=== PATIENT | male | born 1945 | race Caucasian/White ===

== ENCOUNTER → 2017-10-01 | Outpatient (CLI) | payer OTHER | LOC: FIMAGING 09:13 | PROVIDERS: ATTEND Family Medicine | DX: I70.212 Atherosclerosis of native arteries of extremities with intermittent claudication, left leg (principal); E78.5 Hyperlipidemia, unspecified; M79.605 Pain in left leg; I71.4 Abdominal aortic aneurysm, without rupture ==

== ENCOUNTER → 2018-01-05 | Outpatient (CLI) | payer OTHER ==
[~2018-01-05] MED LIST: IOPAMIDOL (ISOVUE-370) 150 ML BTL IV ONE
== END ==
LOC: CIMAGING 09:11
PROVIDERS: ATTEND Surgery
DX: I70.212 Atherosclerosis of native arteries of extremities with intermittent claudication, left leg (principal)
CPT/HCPCS: 75635; Q9967

== ENCOUNTER 2018-08-23 12:26 | Inpatient (IN) | payer OTHER ==
[2018-08-23] MEDS ORDERED: LIDOCAINE 1% 2 ML INJ ID PRN (12:58)
[2018-08-23] MEDS ORDERED: LR 1,000 ML IV ONE (12:58)
[2018-08-23] MEDS ORDERED: ceFAZolin 2 GM/DEXTROSE 100 ML IV ONE (13:24)
--- NOTE | 2018-08-23 13:24 | PDHPUP ---
History & Physical Update H&P update statement: This history and physical update is based on an assessment of the patient which was completed after admission or registration (within 24 hours), but prior to the surgery/procedure. H&P update: H&P reviewed & patient examined, no change in patient's condition since H&P completed
[2018-08-23] MEDS ORDERED: BUPIVACAINE 0.5% 30 ML SDV ONE (13:40)
[2018-08-23] MEDS ORDERED: PAPAVERINE HCL 60 MG/2 ML SDV ONE (13:41)
[2018-08-23] MEDS ORDERED: MIDAZOLAM 2 MG/2 ML VIAL ONE (14:04)
[2018-08-23] MEDS ORDERED: MIDAZOLAM 2 MG/2 ML VIAL IVP ONE (14:05)
--- NOTE | 2018-08-23 14:05 | PDANEPAE ---
ANE Past Medical History - Cardiovascular History Hx Hypertension: Yes Hx Arrhythmias: No Hx Chest Pain: No Hx Coronary Artery / Peripheral Vascular Disease: Yes Hx CHF / Valvular Disease: No Hx Palpitations: No Cardiovascular History Comment: htn. NSTEMI 03/2014. cad with stents x2. pvd. AAA. hyperlipidemia. [facility] by [facility] currently was at [facility] - Pulmonary History Hx COPD: No Hx Asthma/Reactive Airway Disease: No Hx Recent Upper Respiratory Infection: No Hx Oxygen in Use at Home: No Hx Sleep Apnea: No Sleep Apnea Screening Result - Last Documented: Positive Pulmonary History Comment: florinda triggers - Neurologic History Hx Cerebrovascular Accident: No Hx Seizures: No Hx Dementia: No - Endocrine History Hx Diabetes: No - Renal History Hx Renal Disorders: No - Liver History Hx Hepatic Disorders: No - Neurological & Psychiatric Hx Hx Neurological and Psychiatric Disorders: No - Cancer History Hx Cancer: No - Congenital Disorder History Hx Congenital Disorders: No - GI History Hx Gastrointestinal Disorders: No - Other Health History Other Health History: wears glasses - Chronic Pain History Chronic Pain: No - Surgical History Prior Surgeries: L broken arm repair 2009 from [facility]. cardiac stents x2 2013 ANE Review of Systems Review of Systems: - Exercise capacity METS (RN): 4 METS ANE Patient History - Allergies Allergies/Adverse Reactions: No Known Allergies Allergy (Verified 07/05/18 10:52) - Home Medications Home Medications: Aspirin [Aspirin 81mg (*)] 81 mg PO HS 07/05/18 [Last Taken 08/22/18] Atorvastatin Calcium [Lipitor 40 mg (*)] 40 mg PO HS 07/05/18 [Last Taken ] Hydrochlorothiazide [HCTZ (*)] 25 mg PO HS 07/05/18 [Last Taken 08/22/18] Lisinopril [Zestril 40 mg (*)] 40 mg PO HS 07/05/18 [Last Taken 08/22/18] Nebivolol HCl [Bystolic 5 mg (*)] 5 mg PO HS 07/05/18 [Last Taken 08/22/18] Howard-3 Fatty Acids [Fish Oil 1000 mg (*)] 1,000 mg PO HS 07/05/18 [Last Taken 1 Week Ago ~08/16/18] - NPO status NPO Since - Liquids (Date): 08/23/18 NPO Since - Liquids (Time): 11:00 NPO Since - Solids (Date): 08/22/18 NPO Since - Solids (Time): 17:30 - Smoking Hx Smoking Status: Smoker current status UNK - Family Anes Hx Family Hx Anesthesia Complications: none ANE Labs/Vital Signs - Vital Signs Blood Pressure: 108/70 Heart Rate: 48 Respiratory Rate: 16 O2 Sat (%): 95 Height: 172.72 cm Weight: 102.058 kg ANE Physical Exam - Airway Neck exam: FROM Mallampati Score: Class 3 Mouth exam: normal dental/mouth exam - Pulmonary Pulmonary: no respiratory distress - Cardiovascular Cardiovascular: regular rate and rhythym - ASA Status ASA Status: III ANE Anesthesia Plan Anesthesia Plan: general endotracheal anesthesia (spinal narcotic PSR)
[2018-08-23] MEDS ORDERED: fentaNYL 250 MCG/5 ML INJ ONE (14:09)
[2018-08-23] MEDS ORDERED: morphINE PF 5 MG/10 ML INJ ONE (14:09)
[2018-08-23] MEDS ORDERED: PROPOFOL 200 MG/20 ML VIAL ONE (14:09)
[2018-08-23] MEDS ORDERED: METOCLOPRAMIDE 10 MG/2 ML VIAL ONE (14:10)
[2018-08-23] MEDS ORDERED: LIDOCAINE 2% 100 MG/5 ML SYR ONE (14:10)
[2018-08-23] MEDS ORDERED: DEXAMETHASONE 4 MG/ML VIAL ONE (14:10)
[2018-08-23] MEDS ORDERED: ROCURONIUM 100 MG/10 ML VIAL ONE (14:10)
[2018-08-23] MEDS ORDERED: IOPAMIDOL (ISOVUE-M 200) 20 ML VIAL ONE ×2 (14:32→15:39)
[2018-08-23] MEDS ORDERED: ONDANSETRON 4 MG/2 ML VIAL IVP PRN ×3 (14:54→16:46)
[2018-08-23] MEDS ORDERED: METOCLOPRAMIDE 10 MG/2 ML VIAL IVP PRN (14:54)
[2018-08-23] MEDS ORDERED: ZOLPIDEM TARTRATE 5 MG TAB PO PRN (14:54)
[2018-08-23] MEDS ORDERED: IOPAMIDOL (ISOVUE-M 300) 15 ML VIAL ONE ×2 (15:41→18:24)
[2018-08-23] MEDS ORDERED: NALOXONE HCL 0.4 MG/ML INJ IVP PRN ×2 (16:46)
[2018-08-23] MEDS ORDERED: ALBUTEROL 3 ML DEYVIAL IH PRN (16:46)
[2018-08-23] MEDS ORDERED: fentaNYL 100 MCG/2 ML INJ IVP PRN (16:46)
[2018-08-23] MEDS ORDERED: SURGIFLO MATRIX KIT WITH THROMBIN 8 ML TP ONE (18:15)
[2018-08-23] MEDS ORDERED: HEPARIN 10,000 UNIT/10 ML MDV (1,000 UNIT/ML) ONE (18:41)
--- NOTE | 2018-08-23 18:55 | POSTOPPROG ---
Post Op Note Date of Operation: 08/23/18 Surgeon: Corby Giron [employer] Art Supervisor: Luis Santos Anesthesiologist: José Cornell Anesthesia: GET(General Endotracheal), Spinal Pre-op Diagnosis: Left SFA/popliteal artery aneurysm Post-op Diagnosis: Same Procedure: Left femoral to popliteal artery bypass with rev SVG / aneurysm ligation Findings: Fusiform aneurysm, poor run off vessels Inf/Abcess present in the surg proc area at time of surgery?: No EBL: Minimal Complications: no immediate Specimen(s): none
[2018-08-23] MEDS ORDERED: HEPARIN/DEXTROSE 500 ML IV SCH ×2 (19:00→19:30)
[2018-08-23] MEDS ORDERED: HEPARIN 10,000 UNIT/10 ML MDV (1,000 UNIT/ML) IVP PRN (19:18)
--- NOTE | 2018-08-23 19:22 | POSTANESTH ---
Post Anesthetic Evaluation Cardiovascular Status: Similar to Pre-Op Cond Respiratory Status: Similar to Pre-op Cond. Level of Consciousness/Mental Status: Alert and Oriented Pain Control: Adequate, Prn Tx Ordered Nausea/Vomiting Control: Adequate, Prn Tx Ordered Complications Possibly Related to Anesthesia: None Noted
[2018-08-23 20:02] LABS: PLATELET COUNT 117 10^3/uL (150-400)
[2018-08-23 20:39] LABS: INR 1.38 (0.83-1.16)
--- NOTE | 2018-08-23 21:36 | PDMN ---
Medical Necessity Medical necessity: Pt meets inpt criteria per MD order and Cardiovascular surgery or Procedure [facility], [place] of femoropopliteal vein, 1 segment, for vascular reconstruction procedure. 72 y/o w/L SFA/popliteal artery aneurism admitted for L femoral to popliteal artery bypass w/rev SVG/ aneurism ligation and post-op care. Est LOS>2MN.
[2018-08-23 21:46] LABS: PROTIME(PATIENT) 17.1 SEC (12.0-15.0)
[2018-08-23] MEDS: ASPIRIN 81 MG CHEWABLE TAB PO SCH (23:07)
[2018-08-23] MEDS: HYDROCHLOROTHIAZIDE 25 MG TAB PO SCH (23:07)
[2018-08-23] MEDS: LISINOPRIL 40 MG TAB PO SCH (23:07)
[2018-08-23] MEDS: ATORVASTATIN CALCIUM 40 MG TAB PO SCH (23:07)
[2018-08-23] MEDS: NEBIVOLOL HCL 5 MG TAB PO SCH (23:13)
[2018-08-24 03:58] LABS: PROTIME(PATIENT) 16.4 SEC (12.0-15.0)
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
--- NOTE | 2018-08-24 10:15 | SOAPPROG ---
SOELAINA Progress Note Assessment/Plan: Assessment/Plan: S/p left popliteal artery aneurysm bypass with reverse saphenous vein graft POD #1. Doing well. Graft patent. Heparin switched to Eliquis. Discussed probable anticoagulation therapy upon discharge. Encouraged walking and leg exercises. Request for PT to evaluate and treat. Extensive patient questions addressed. Patient seen and evaluated with Dr. Giron. 08/24/18 16:31 Subjective: No overnight concerns. Left leg "tightness" and pain with bending and walking. Left leg swelling most prominent in calf. Complains of mild left dorsal foot numbness. Has has mild nausea and emesis x2 today- this is relieved with Zofran. Complains of possible gastric reflux. No urinary complaints. Objective: Vital Signs Temp Pulse Resp BP Pulse Ox 36.7 C 61 22 H 83/57 L 95 08/24/18 08:48 08/24/18 08:48 08/24/18 08:48 08/24/18 08:48 08/24/18 08:48 Laboratory Results 08/23/18 19:40 08/23/18 08/24/18 08/25/18 05:59 05:59 05:59 Intake Total 4250 Output Total 1375 Balance 2875 PT 16.4 SEC (12.0-15.0) H 08/24/18 03:39 INR 1.30 (0.83-1.16) H 08/24/18 03:39 Physical Exam: Gen: A&O x3, appears comfortable in bed, afebrile HEENT: normal Heart: RRR Lungs: CTA bilateral Abdomen: soft, nondistended, nontender Extremities: Left leg incisions clean without erythema. Appropriate left thigh, groin, and leg ecchymosis and swelling. Mild pain left medial thigh. Right leg unremarkable. Neuro: nonfocal bilateral legs ICD10 Worksheet Patient Problems: Problems Problem Status Onset Popliteal artery aneurysm Acute
[2018-08-24] MEDS: APIXABAN 5 MG TAB PO SCH ×2 (10:52→22:44)
[2018-08-24] MEDS: HYDROmorphONE/DILAUDID 1 MG/ML INJ IVP PRN (15:13)
--- NOTE | 2018-08-24 15:43 | ASMTCMCOM ---
CM Note CM Note Notes: Spoke with pt's RN. Pt in too much pain to converse with CM. Pt lives with in [place] and was admitted for Fem-Pop Bypass, and is experiencing considerable swelling post op. PT has been ordered but has yet to evaluated. D/C needs TBD. CM to follow. D/C Plan: TBD Date Signed: 08/24/2018 03:43 PM Electronically Signed By:Rehana Barth
[2018-08-24] MEDS: HYDROCODONE/APAP 5/325 TAB PO PRN ×2 (15:47→22:49)
--- NOTE | 2018-08-24 17:19 | PDPAINCON ---
Pain Management Consultation - Subjective Pain at rest (/10): 3 Pain with activity (/10): 5 Pain is: high, but manageable Side effects include: drowsy, itchiness, nausea Activity: able to ambulate - Objective Technique: spinal opioid Continuous infusion: morphine Catheter site: clean, dry, intact, no erythema/edema/exudate Sensory and motor exam: block has resolved, no apparent ill effects Vital signs: stable - Assessment/Plan Assessment/Plan: pain well-controlled, continue current mgmt (would continue PO pain medication, consider increasing current dose.) Additional comments: Intrathecal narcotic resolved, no ill effects noted.
[2018-08-24] MEDS ORDERED: ONDANSETRON 4 MG/2 ML VIAL IVP PRN (17:37)
[2018-08-24] MEDS ORDERED: PROMETHAZINE HCL 25 MG/ML INJ IVP PRN (17:37)
[2018-08-24] MEDS: CALCIUM CARBONATE 500 MG CHEWABLE TAB PO PRN ×2 (18:35→22:40)
[2018-08-24] MEDS ORDERED: D5W LR 1,000 ML IV SCH (19:30)
[2018-08-24] MEDS ORDERED: NS BOLUS 1000 ML (Wide open) IV ONE (19:30)
[2018-08-24] MEDS: ASPIRIN 81 MG CHEWABLE TAB PO SCH (22:40)
[2018-08-24] MEDS: NEBIVOLOL HCL 5 MG TAB PO SCH (22:40)
[2018-08-24] MEDS: ATORVASTATIN CALCIUM 40 MG TAB PO SCH (22:44)
[2018-08-24] MEDS: HYDROCHLOROTHIAZIDE 25 MG TAB PO SCH (22:44)
[2018-08-24] MEDS: LISINOPRIL 40 MG TAB PO SCH (22:44)
[2018-08-25] MEDS: oxyCODONE IR 15 MG TAB PO PRN ×5 (00:16→21:22)
[2018-08-25] MEDS: DIAZEPAM 5 MG TAB PO PRN ×2 (08:21→10:07)
[2018-08-25] MEDS: ACETAMINOPHEN 325 MG TAB PO PRN (08:21)
[2018-08-25] MEDS: APIXABAN 5 MG TAB PO SCH ×2 (09:57→21:24)
--- NOTE | 2018-08-25 10:46 | SOAPPROG ---
SOAP Progress Note Assessment/Plan: Assessment:no overnight issues. nausea better. still with significant pain. no cp or sob. avss. comfortable, up in chair. left leg with notable diffuse swelling/ecchymosis. incisions clean. strong PT signal. foot warm. Cr 1.6. pod#2 s/p fem-pop / aneurysm ligation. slow progress. graft patent. elevated creat likely pre-renal - will give additional IVF today. aggressive PT. cont eliquis (extremely poor outflow). supportive care. Plan: 08/25/18 10:44 Objective: Vital Signs Temp Pulse Resp BP Pulse Ox 36.4 C 63 15 97/46 L 90 L 08/25/18 07:19 08/25/18 07:19 08/25/18 07:19 08/25/18 09:59 08/25/18 07:19 Laboratory Results 08/23/18 19:40 08/25/18 03:50 08/24/18 08/25/18 08/26/18 05:59 05:59 05:59 Intake Total 4566 2790 Output Total 1375 855 Balance 3191 1935 PT 16.4 SEC (12.0-15.0) H 08/24/18 03:39 INR 1.30 (0.83-1.16) H 08/24/18 03:39 ICD10 Worksheet Patient Problems: Problems Problem Status Onset Popliteal artery aneurysm Acute
[2018-08-25] MEDS: NS 1,000 ML IV SCH ×2 (12:41→15:30)
--- NOTE | 2018-08-25 14:11 | ASMTCMCOM ---
CM Note CM Note Notes: 08/25/2018 Case Management Note PT recommending SNF rehab. Met w/pt to discuss. Pt states that MD is recommending home care. Discussed both options with patient. Pt states he will discharge with the recommendations from surgeon and will make decision on day of discharge. Faxed referral to [facility]. Imelda visited onsite and accepted. Faxed referral to [facility]. Phone call to [facility], they accepted pt. Case Management d/c poc: [facility] vs [facility] Case Management to follow. Date Signed: 08/25/2018 02:10 PM Electronically Signed By:Siria Ellis RN
[2018-08-25] MEDS ORDERED: BISACODYL 10 MG SUPP PR PRN (14:35)
[2018-08-25] MEDS ORDERED: MAGNESIUM HYDROXIDE 30 ML UDCUP PO PRN (14:35)
[2018-08-25] MEDS ORDERED: POLYETHYLENE GLYCOL 3350 17 GM PKT PO PRN (14:35)
[2018-08-25] MEDS ORDERED: LACTULOSE 20 GM/30 ML UDCUP PO PRN (14:35)
[2018-08-25] MEDS: NEBIVOLOL HCL 5 MG TAB PO SCH (21:23)
[2018-08-25] MEDS: LISINOPRIL 40 MG TAB PO SCH (21:23)
[2018-08-25] MEDS: ASPIRIN 81 MG CHEWABLE TAB PO SCH (21:24)
[2018-08-25] MEDS: ATORVASTATIN CALCIUM 40 MG TAB PO SCH (21:24)
[2018-08-25] MEDS: SENNOSIDES/DOCUSATE SODIUM TAB PO SCH (21:24)
[2018-08-26] MEDS: HYDROCHLOROTHIAZIDE 25 MG TAB PO SCH (00:03)
[2018-08-26] MEDS: HYDROCODONE/APAP 5/325 TAB PO PRN ×3 (03:34→22:03)
[2018-08-26] MEDS: APIXABAN 5 MG TAB PO SCH ×2 (07:50→21:38)
[2018-08-26] MEDS: SENNOSIDES/DOCUSATE SODIUM TAB PO SCH ×2 (07:51→21:37)
--- NOTE | 2018-08-26 08:57 | SOAPPROG ---
SOAP Progress Note Assessment/Plan: Assessment:slow progress. walking slightly better. pain control improved. appetite poor. still max assist with staff. afebrile. bp 90's. comfortable. leg swelling unchanged. diffuse ecchymosis evolving. incisions clean. skin blistering. strong PT signal. Na 127. Cr 1.5. pod#3 s/p fem pop / aneurysm ligation. slow improvement. will need inpt rehab per discussion with PT. continued supportive care re: TYRON/hyponatremia - restart IVF given poor po intake. cont eliquis. cont PT/OT. dc once labs improved. BECKY for leg compression/swelling management. no overnight issues. nausea better. still with significant pain. no cp or sob. avss. comfortable, up in chair. left leg with notable diffuse swelling/ ecchymosis. incisions clean. strong PT signal. foot warm. Cr 1.6. pod#2 s/ p fem-pop / aneurysm ligation. slow progress. graft patent. elevated creat likely pre-renal - will give additional IVF today. aggressive PT. cont eliquis (extremely poor outflow). supportive care. Plan: 08/25/18 10:44 08/26/18 08:54 Objective: Vital Signs Temp Pulse Resp BP Pulse Ox 36.9 C 60 18 93/47 L 93 08/26/18 08:01 08/26/18 08:01 08/26/18 08:01 08/26/18 08:01 08/26/18 08:01 Laboratory Results 08/23/18 19:40 08/26/18 07:40 08/25/18 08/26/18 08/27/18 05:59 05:59 05:59 Intake Total 2790 1305 Output Total 855 1150 500 Balance 1935 155 -500 PT 16.4 SEC (12.0-15.0) H 08/24/18 03:39 INR 1.30 (0.83-1.16) H 08/24/18 03:39 ICD10 Worksheet Patient Problems: Problems Problem Status Onset Popliteal artery aneurysm Acute
[2018-08-26] MEDS: NS 1,000 ML IV SCH (09:45)
[2018-08-26] MEDS: oxyCODONE IR 15 MG TAB PO PRN ×2 (09:45→13:05)
[2018-08-26] MEDS: HYDROmorphONE/DILAUDID 1 MG/ML INJ IVP PRN (10:33)
[2018-08-26] MEDS: DIAZEPAM 5 MG TAB PO PRN ×2 (10:34→13:05)
[2018-08-26] MEDS ORDERED: METHOCARBAMOL 500 MG TAB PO PRN (13:51)
--- NOTE | 2018-08-26 15:04 | ASMTCMCOM ---
CM Note CM Note Notes: 08/26/2018 [facility] Management Note Phone call from Imelda with [facility]. Pt has been accepted. Requested auth. Case Management d/c poc: [facility] SNF rehab Case Management to follow. Date Signed: 08/26/2018 03:03 PM Electronically Signed By:Siria Ellis RN
[2018-08-26] MEDS: ASPIRIN 81 MG CHEWABLE TAB PO SCH (21:37)
[2018-08-26] MEDS: ATORVASTATIN CALCIUM 40 MG TAB PO SCH (21:38)
[2018-08-26] MEDS: NEBIVOLOL HCL 5 MG TAB PO SCH (21:38)
[2018-08-27] MEDS: SENNOSIDES/DOCUSATE SODIUM TAB PO SCH ×2 (07:24→20:24)
[2018-08-27] MEDS: APIXABAN 5 MG TAB PO SCH ×2 (07:55→20:22)
[2018-08-27] MEDS: HYDROCODONE/APAP 5/325 TAB PO PRN ×2 (07:55→22:02)
--- NOTE | 2018-08-27 09:54 | SOAPPROG ---
SOAP Progress Note Assessment/Plan: Assessment/Plan: 72-year-old gentleman postop day 4. Status post ligation of distal left femoral artery aneurysm and bypass from superficial femoral artery to popliteal. The patient has had quite a bit of pain postoperatively nausea which was an issue has resolved. Hyponatremia of 127 yesterday is now 130 after appropriate administration of normal saline. The patient still has pain in his left distal thigh and ankle. He has moderate swelling which has been treated with elevation and compression. Incisions have minimal to moderate serosanguineous drainage. Doppler signals remained intact. Multiple bowel movements last night. Confusion with Robaxin yesterday this will be discontinued. Not a true allergy but hypersensitivity Alert oriented to person place and time Regular rate and rhythm Clear to auscultation Abdomen protuberant Incisions with dry dressing currently. Dagoberto wrap over majority of his distal thigh and lower leg. Foot is mildly edematous. Biphasic Doppler signal at the ankle. Doing better today. 1000 cc free water restriction Continue normal saline for hypernatremia Breakthrough IV Dilaudid for pain control Discontinue Robaxin Anticipate discharge to SNF on Wednesday or Wednesday08/27/18 09:50 Objective: Vital Signs Temp Pulse Resp BP Pulse Ox 36.7 C 66 18 87/46 L 98 08/27/18 07:27 08/27/18 07:27 08/27/18 07:27 08/27/18 07:27 08/27/18 07:27 Laboratory Results 08/23/18 19:40 08/27/18 04:08 08/26/18 08/27/18 08/28/18 05:59 05:59 05:59 Intake Total 1305 4483 200 Output Total 1150 1700 300 Balance 155 2783 -100 PT 16.4 SEC (12.0-15.0) H 08/24/18 03:39 INR 1.30 (0.83-1.16) H 08/24/18 03:39 ICD10 Worksheet Patient Problems: Problems Problem Status Onset Popliteal artery aneurysm Acute
[2018-08-27] MEDS: NEBIVOLOL HCL 5 MG TAB PO SCH (20:21)
[2018-08-27] MEDS: ASPIRIN 81 MG CHEWABLE TAB PO SCH (20:22)
[2018-08-27] MEDS: ATORVASTATIN CALCIUM 40 MG TAB PO SCH (20:22)
[2018-08-27] MEDS: NS 1,000 ML IV SCH (20:24)
[2018-08-28] MEDS: APIXABAN 5 MG TAB PO SCH ×2 (08:21→21:34)
[2018-08-28] MEDS: SENNOSIDES/DOCUSATE SODIUM TAB PO SCH ×2 (08:22→22:11)
--- NOTE | 2018-08-28 08:27 | SOAPPROG ---
SOAP Progress Note Assessment/Plan: Assessment/Plan: 72-year-old gentleman postop day 5. Status post ligation of distal left femoral artery aneurysm and bypass from superficial femoral artery to popliteal. The patient has had quite a bit of pain postoperatively nausea which was an issue has resolved. The patient still has pain in his left distal thigh and ankle. He has moderate swelling which has been treated with elevation and compression. Incisions have minimal serosanguineous drainage. Doppler signals remained intact. States he is better when he walks Confusion with Robaxin yesterday this was discontinued. Not a true allergy but hypersensitivity Alert oriented to person place and time Regular rate and rhythm Clear to auscultation Abdomen protuberant Incisions with dry dressing currently. Dagoberto wrap over majority of his distal thigh and lower leg. Foot is mildly edematous. Biphasic Doppler signal at the ankle. Doing better today. 1000 cc free water restriction Continue normal saline for hypernatremia recheck Chem 7 today and tomorrow Breakthrough IV Dilaudid for pain control Encourage ambulation. Compression only during the day Anticipate discharge to SNF on Wednesday or Wednesday08/27/18 09:50 08/28/18 08:25 Objective: Vital Signs Temp Pulse Resp BP Pulse Ox 36.8 C 60 18 108/52 L 91 L 08/28/18 07:52 08/28/18 07:52 08/28/18 07:52 08/28/18 07:52 08/28/18 07:52 Laboratory Results 08/23/18 19:40 08/27/18 04:08 08/27/18 08/28/18 08/29/18 05:59 05:59 05:59 Intake Total 4483 3436 Output Total 1700 2800 700 Balance 2783 636 -700 PT 16.4 SEC (12.0-15.0) H 08/24/18 03:39 INR 1.30 (0.83-1.16) H 08/24/18 03:39 ICD10 Worksheet Patient Problems: Problems Problem Status Onset Popliteal artery aneurysm Acute
[2018-08-28] MEDS: HYDROCODONE/APAP 5/325 TAB PO PRN ×3 (10:09→22:11)
[2018-08-28] MEDS: NS 1,000 ML IV SCH (21:02)
[2018-08-28] MEDS: NEBIVOLOL HCL 5 MG TAB PO SCH (21:31)
[2018-08-28] MEDS: ASPIRIN 81 MG CHEWABLE TAB PO SCH (21:34)
[2018-08-28] MEDS: ATORVASTATIN CALCIUM 40 MG TAB PO SCH (21:34)
[2018-08-29] MEDS: APIXABAN 5 MG TAB PO SCH (07:55)
[2018-08-29] MEDS: SENNOSIDES/DOCUSATE SODIUM TAB PO SCH (07:56)
[2018-08-29 08:02] VITALS: BP 130/66
--- NOTE | 2018-08-29 09:02 | PDIAF ---
- Diagnosis Diagnosis: Left popliteal aneurysm ligation and bypass Code Status: Full Code - Medication Management Additional Medication Instructions: Hold Lisinopril and Hydrochlorothiazide until follow up. Discharge Medications: electronically signed and located in the Home Medication List. PICC Care - Routine: N/A - Orders Services needed: Registered Nurse, Certified Passenger Screener, Physical Therapy Isolation Type: None Diet Recommendation: no restrictions on diet Diet Texture: Regular Texture Diet Wound Care Instructions: Wash incisions with warm water and soap. Keep covered with dry gauze. Left leg compression with BECKY wrap during day- may remove at night. Activity/Weight Bearing Restrictions: None. Frequent ambulation. Additional Instructions: May shower. Wash incisions with warm water and soap. Cover incisions with dry gauze. Continue BECKY wrap compression on left leg during day- may remove at night. Hold Lisinopril and Hydrochlorothiazide until seen for follow up visit. No activity restrictions, continue with frequent ambulation. Regular diet. Follow up in the office in 2 weeks, call to make appointment. Prescriptions provided for Eliquis and oxycodone. - Follow Up Care Current Providers and Referrals: Corby Giron MD [Medical Doctor] - follow up in 2 weeks Lizbeth Musa DO [Primary Care Provider] -
[2018-08-29] MEDS: oxyCODONE IR 15 MG TAB PO PRN (11:59)
[2018-08-29] MEDS: ACETAMINOPHEN 325 MG TAB PO PRN (12:00)
--- NOTE | 2018-08-29 14:21 | ASDISCHSUM ---
Discharge Information Plan Status:Has needs-TBD Medically Cleared to Leave: Discharge Date:08/29/2018 12:29 PM CM D/C Disposition: ADT D/C Disposition:[facility] Facility Projected Discharge Date:08/27/2018 11:00 AM Transportation at D/C: Discharge Delay Reason: Follow-Up Date:08/27/2018 11:00 AM Discharge Slot: Final Diagnosis: Placement Information Referral Type:*Jail/SNF Referral ID:[facility]-[id number] Provider Name:Junie Langford [place] Address 1[address] [place] Phone Number: Address 2: Fax Number: [facility]:[place] Selection Factors: State:[place] Referral Type:*Home Health Care Services Referral ID:[id number] Provider Name: Address 1: Phone Number: Address 2: Fax Number: City: Selection Factors: State: Patient Contact Information Contact Name:SILVIA Relationship: Address:[address] [place] Alternate Phone: State/Zip Code:[place] [address] Email: Financial Information Financial Class:Medicare Advantage Plans Primary Plan Desc:[employer] Primary Plan Number:[id number] Secondary Plan Desc: Secondary Plan Number: Assessment Information LACE LACE Length of stay for Answers: 7-13 days current admission Acuity / Level of Answers: Yes Care: Did the patient have an inpatient admission? Comorbidities - select Answers: Coronary Artery Disease all that apply Peripheral vascular disease Other Notes: HTN; HLD # of Emergency department Answers: 0 visits in the last 6 months Score: 12 Date Signed: 08/29/2018 09:34 AM Electronically Signed By:Aviva Carson RN [facility] CM Progress Note CM Note CM Note Notes: Spoke with pt's RN. Pt in too much pain to converse with CM. Pt lives with in [place] and was admitted for Fem-Pop Bypass, and is experiencing considerable swelling post op. PT has been ordered but has yet to evaluated. D/C needs TBD. CM to follow. D/C Plan: TBD Date Signed: 08/24/2018 03:43 PM Electronically Signed By:Rehana Barth [facility] CM Progress Note CM Note CM Note Notes: 08/25/2018 Case Management Note PT recommending SNF rehab. Met w/pt to discuss. Pt states that MD is recommending home care. Discussed both options with patient. Pt states he will discharge with the recommendations from surgeon and will make decision on day of discharge. Faxed referral to [facility]. Imelda visited onsite and accepted. Faxed referral to [facility]. Phone call to [facility], they accepted pt. Case Management d/c poc: [facility] vs [facility] Case Management to follow. Date Signed: 08/25/2018 02:10 PM Electronically Signed By:Siria Ellis RN [facility] CM Progress Note CM Note CM Note Notes: 08/26/2018 [facility] Management Note Phone call from Imelda with [facility]. Pt has been accepted. Requested auth. Case Management d/c poc: [facility] rehab Case Management to follow. Date Signed: 08/26/2018 03:03 PM Electronically Signed By:Siria Ellis RN Case Management Discharge Plan Note Case Management Discharge Discharge Order Complete? Answers: Yes Patient to Obtain Answers: Other Notes: [facility] Transportation Arranged Answers: Other Notes: [facility] per Transport will Pick (Date 08/29/2018 12:00 PM & Time) Faxed Final Orders Answers: Yes Discharge Comments Notes: Patient discharged to [facility]. Transport arraged by facility. VIKCY Bennett to call report. Date Signed: 08/29/2018 09:33 AM Electronically Signed By:Aviva Carson RN Intervention Information Intervention Type:*IM-Signed Date of Service:08/29/2018 11:26 AM Patient Type:Inpatient Staff Member:Deneen Patel Hours: Discipline: Severity: Comment:
--- NOTE | 2018-08-29 14:22 | ASMTDCNOTE ---
Case Management Discharge Discharge Order Complete? Answers: Yes Patient to Obtain Answers: Other Notes: [facility] Transportation Arranged Answers: Other Notes: [facility] per [facility] Transport will Pick (Date 08/29/2018 12:00 PM & Time) Faxed Final Orders Answers: Yes Discharge Comments Notes: Patient discharged to [facility]. Transport arraged by facility. VICKY Bennett to call report. Date Signed: 08/29/2018 09:33 AM Electronically Signed By:Aviva Carson RN
--- NOTE | 2018-08-29 21:33 | GDS ---
REASON FOR ADMISSION: Popliteal artery aneurysm. 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 He sustained embolization multiple years ago. He has been in an ongoing claudicator. He has successfully stopped smoking and has improved his ambulatory efforts. He was admitted for ane urysm ligation with a femoral to distal popliteal artery bypass with reverse saphenous vein. His pos toperative course was notable for ongoing pain as well as a self-resolving acute renal insufficiency and hyponatremia. The latter 2 events have all improved with conservative measures, including free w ater restriction and hydration therapies. He was discharged to a senior living facility to aid in his physical recovery. He was requested to withhold his lisinopril and hydrochlorothiazide until fol lowup. He was placed on Eliquis indefinitely at this point given his extremely poor runoff. He was requiring oxycodone as needed for discomfort. He was to continue with his Bystolic, Lipitor, aspirin , and fish oil. He will be seen in followup with Dr. Giron in 1 to 2 weeks. No activity or instructio ns were offered. He was instructed to continue with leg compression to aid in reperfusion and surgic al based edema. All activity instructions were explained prior to leaving. /[id number]/MODL
== END 2018-08-29 12:29 | DRG 253 ==
LOC: F3N 12:26 → F3E 19:09 → F2W 21:05
PROVIDERS: ADMIT Surgery; ATTEND Surgery
DX: I72.4 Aneurysm of artery of lower extremity (principal); I70.212 Atherosclerosis of native arteries of extremities with intermittent claudication, left leg; I71.4 Abdominal aortic aneurysm, without rupture; N99.89 Other postprocedural complications and disorders of genitourinary system; N28.9 Disorder of kidney and ureter, unspecified; E87.1 Hypo-osmolality and hyponatremia; I10 Essential (primary) hypertension; I25.10 Atherosclerotic heart disease of native coronary artery without angina pectoris; I25.2 Old myocardial infarction; Z95.5 Presence of coronary angioplasty implant and graft; E78.5 Hyperlipidemia, unspecified; Z87.891 Personal history of nicotine dependence
CPT/HCPCS: 85520-90; 97110-GP; 97116-GP; 97161-GP; 97165-GO; 97530-GP; 97535-GO; G8978-GP-CM; G8979-GP-CI; G8987-GO-CK; G8988-GO-CI; G8989-GO-CJ; J0690; J1100; J1170; J1644; J2001; J2250; J2274; J2405; J2440; J2550; J2704; J2765; J3010; Q9966; Q9967